=== PATIENT | male | born 1955 | race Caucasian/White ===

== ENCOUNTER 2022-06-11 13:02 | Emergency (ER) | payer MEDICAID ==
[~2022-06-11] VITALS: Ht 182.9 cm; Wt 83.9 kg
--- NOTE | 2022-06-11 14:25 | NUR ---
Pt to CT via [facility].
[2022-06-11 14:27] LABS: HEMATOCRIT 34.9 % (36.7-47.1); MEAN CORPUSCULAR HEMOGLOBIN 33.4 uug (23.8-33.4); PLATELET COUNT (AUTO) 292 K/uL (152-348)
--- NOTE | 2022-06-11 14:37 | NUR ---
Pt back to room 1A from CT.
[2022-06-11 14:43] LABS: POTASSIUM 3.5 mmol/L (3.5-5.1)
[2022-06-11 14:49] LABS: BILIRUBIN,TOTAL 0.2 mg/dL (0.2-1.0); ETHANOL < 3 MG/DL (0-0); TOTAL PROTEIN, SERUM 6.7 g/dL (6.4-8.2)
[2022-06-11 14:54] LABS: ACETAMINOPHEN < 2.0 ug/mL (10-30)
[2022-06-11] MEDS ORDERED: SWABABLE VALVE TRANSFER SET EA MC ONE (15:13)
[2022-06-11] MEDS ORDERED: IOHEXOL 350 100 ML INFUS..BTL ONE (15:13)
[2022-06-11] MEDS ORDERED: IV NORMAL SALINE 250 ML IV ONE (15:13)
[2022-06-11] MEDS ORDERED: ACETAMINOPHEN 325 MG TABLET PO ONE (16:15)
[2022-06-11] MEDS ORDERED: ACETAMINOPHEN 325 MG TABLET ONE (16:32)
--- NOTE | 2022-06-11 18:45 | NUR ---
Pt eloped, pt not in room 1A. Found saline lock on gurney (cath intact) and monitor wires pulled off and on the floor.
== END 2022-06-11 18:47 | disposition left against medical advice (07) ==
LOC: ER 13:02
DX: R07.9 Chest pain, unspecified (principal); J43.2 Centrilobular emphysema; I65.23 Occlusion and stenosis of bilateral carotid arteries; I50.9 Heart failure, unspecified; Z86.73 Personal history of transient ischemic attack (TIA), and cerebral infarction without residual deficits; R47.1 Dysarthria and anarthria
CPT/HCPCS: 80053; 83880; 85025; 85730; 84484; 93005; 71045; 70450; 70496; 70498; 99285; 80299; 80320; 80307; Q9967; 36415; A4663; G0480